=== PATIENT | female | born 1965 | race Caucasian/White ===

== ENCOUNTER 2016-04-07 13:33 | Outpatient (RCR) | payer BC ==
--- NOTE | 2016-05-05 07:48 | RADONC ---
RADIATION ONCOLOGY SIMULATION NOTE: DATE: 05/04/2016 Prabhu Roberts was taken to the linear accelerator today for clinical setup of her electron beam boost field. Setup was accomplished without difficulty or discomfort. Radiation treatment planning is underway and radiation treatments will begin subsequently. An immobilization device was created and will be used throughout the course of treatment. I was physically present throughout the course of simulation.
--- NOTE | 2016-05-05 08:35 | RADONC ---
RADIATION ONCOLOGY PROGRESS NOTE DATE: 05/04/2016 Ms. Pelletier is presently at a dose of 4215 cGy to her right breast and is tolerating treatments quite well at this point with no complaints related to her radiation therapy. She is having no breast or bone pain. The patient's skin is in good condition with no evidence of moist or dry desquamation. The remainder of physical exam remains unchanged. Ms. Pelletier is tolerating treatments quite well and radiation will continue as scheduled.
== END 2016-05-05 ==
LOC: M ONCR 13:33
PROVIDERS: ATTEND Radiology Radiation Oncology
DX: C50.811 Malignant neoplasm of overlapping sites of right female breast (principal)

== ENCOUNTER 2016-05-06 10:34 | Outpatient (RCR) | payer BC ==
--- NOTE | 2016-05-13 08:41 | RADONC ---
RADIATION ONCOLOGY DATE: 05/11/2016 PROGRESS NOTE Ms. Pelletier is presently at a dose of 5115 cGy to her right breast primary site and is tolerating treatments quite well at this point with no complaints related to her radiation therapy. REVIEW OF SYSTEMS: The patient's review of systems is largely noncontributory. Denies nausea, vomiting, fevers, chills, night sweats, diplopia, headaches, anxiety or depression, anorexia, weight loss, visual disturbances, chest pain, urinary or bowel difficulties, bone pain, or neurological problems. PHYSICAL EXAMINATION: The patient's skin is in good condition with no evidence of moist or dry desquamation. There is some erythema present. The remainder of her physical exam is within normal limits. Ms. Pelletier is tolerating her treatments quite well and radiation will continue as scheduled.
--- NOTE | 2016-05-14 14:20 | RADONC ---
RADIATION ONCOLOGY TREATMENT SUMMARY DATE: 05/12/2016 CHART NUMBER: [id number]. DIAGNOSIS: Right breast cancer. STAGE: IA, [id number]. ECOG PERFORMANCE STATUS: 0 TREATMENT SUMMARY: Ms. 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 We treated the patient to her right breast for a total dose of 4395 cGy delivered in 22 fractions over 33 elapsed days from 04/02/2016 through 05/05/2016. The patient's right breast was treated on a linear accelerator utilizing a 6 MV photon beam via 3D conformal technique with medial lateral tangential turner. Following completion of 4395 cGy to the entire right breast, the primary site was boosted for an additional 900 cGy delivered in five fractions of 180 cGy each from 05/06/2016 through 05/12/2016. The primary site boost was treated on a linear accelerator utilizing a 9 MeV electron beam prescribed to the 90% isodose line via an en face technique. Ms. Pelletier tolerated her treatments quite well and was able to complete therapy as prescribed without interruption. I have scheduled the patient to see me again in 1 month for further followup. She will also continue to be followed by her other physicians as well. cc: Bette Perez MD *Castro Hinson MD
== END 2016-06-02 ==
LOC: M ONCR 10:34
PROVIDERS: ATTEND Radiology Radiation Oncology
DX: C50.811 Malignant neoplasm of overlapping sites of right female breast (principal)

== ENCOUNTER → 2016-06-10 | Outpatient (CLI) | payer BC ==
--- NOTE | 2016-06-12 07:44 | RADONC ---
RADIATION ONCOLOGY FOLLOWUP NOTE DATE: 06/10/2016 CHART NUMBER: [id number]. DIAGNOSIS: Right breast cancer. STAGE: IA, [id number]. ECOG PERFORMANCE STATUS: 0 FOLLOWUP NOTE: Ms. Pelletier is a very pleasant 50-year-old white female with the diagnosis of a stage IA, [id number] poorly differentiated invasive ductal carcinoma of the right breast who is presenting to us today for routine followup visit 1 month post completion of external beam radiation therapy. The patient presents today reporting that she is doing quite well with no complaints at this time related to her radiation therapy or disease. She has no breast or bone pain. REVIEW OF SYSTEMS: The patient's review of systems is noncontributory. She denies nausea, vomiting, fevers, chills, night sweats, diplopia, headaches, anxiety or depression, anorexia, weight loss, visual disturbances, chest pain, urinary or bowel difficulties, bone pain, or neurological problems. PHYSICAL EXAMINATION: The patient is a well-developed, well-nourished white female in no acute distress. HEENT exam is normocephalic, atraumatic. Extraocular movements are intact. There is no palpable cervical, supraclavicular, infraclavicular, axillary, or inguinal lymphadenopathy present. Lungs are clear to auscultation and percussion. Heart has a regular rate and rhythm. Abdomen is benign with no hepatosplenomegaly, masses, or tenderness. Breast examination reveals no masses or discharge bilaterally. Skeletal examination reveals no tenderness to pressure or percussion of the bony skeleton. Extremities reveal no clubbing, cyanosis, or edema. Neurologic exam is grossly intact, as is the remainder of the physical examination. ASSESSMENT: The patient is clinically ANA at this time and will be seen by us again in 6 months for further followup. She will also continue to be followed by her other physicians as well.
== END ==
LOC: M ONCR 14:39
PROVIDERS: ATTEND Radiology Radiation Oncology
DX: C50.811 Malignant neoplasm of overlapping sites of right female breast (principal)

== ENCOUNTER → 2016-12-09 | Outpatient (CLI) | payer BC ==
[~2016-12-09] MED LIST: MULT1TAB10 PO; TAMO20TA4 PO
--- NOTE | 2016-12-09 09:47 | REP ---
Clinical: Preoperative assessment . Comparison: 10/14/2015 . Technique: PA and lateral. Findings: The mediastinum and cardiac silhouette are normal. Airway is patent and midline. Vzibsv-[id number] identified with tip in the SVC. The lung turner are clear and without acute consolidation, effusion, or pneumothorax. The skeletal structures are intact and normal. Impression: 1. No acute cardiopulmonary process. Signed by Ja Doyle MD 12/09/2016 09:39 A
== END ==
LOC: M SMT 09:17
PROVIDERS: ATTEND Thoracic Surgery (Cardiothoracic Vascular Surgery)
DX: Z01.818 Encounter for other preprocedural examination (principal)

== ENCOUNTER 2016-12-23 11:53 | Day surgery (SDC) | payer BC ==
[~2016-12-23] VITALS: Ht 157.5 cm; Wt 55.3 kg
[2016-12-23] MEDS ORDERED: LR 1,000 ML IV SCH (12:15)
[2016-12-23] MEDS ORDERED: MUPIROCIN 2% OINT 22 GM TUBE TOP ONE (12:15)
[2016-12-23 12:43] LABS: INR 1.05
[2016-12-23 12:47] LABS: ANION GAP 4 MEQ/L (8-16); BLOOD UREA NITROGEN 12 MG/DL (7-18); CARBON DIOXIDE LEVEL 32 MEQ/L (21-32); CHLORIDE LEVEL 107 MEQ/L (98-107); CREATININE FOR GFR 0.85 MG/DL (0.55-1.02); GLOMERULAR FILTRATION RATE > 60.0 (>51); GLUCOSE, FASTING 90 MG/DL (70-105); POTASSIUM SERUM 4.4 MEQ/L (3.5-5.1); SODIUM LEVEL 143 MEQ/L (136-145)
[2016-12-23 13:26] LABS: MEAN CORPUSCULAR HGB CONC 35.1 g/dl (32.0-36.5); RED CELL DISTRIBUTION WIDTH 11.7 % (11.5-14.5); WHITE BLOOD COUNT 4.2 K/mm3 (4.0-10.0)
[2016-12-23] MEDS ORDERED: BUPIVACAINE LIPOSOME/PF 1.3% 20 ML VIAL (13.3MG/ML)(EXPAREL) As Ordered ONE (13:39)
[2016-12-23] MEDS ORDERED: MIDAZOLAM INJ 2 MG/2 ML VIAL (J2250) As Ordered ONE (13:47)
[2016-12-23] MEDS ORDERED: PROPOFOL 200 MG/20 ML VIAL As Ordered ONE ×2 (13:47→14:39)
[2016-12-23] MEDS ORDERED: LIDOCAINE 2% INJ 100 MG/5 ML SDV (FOR ANES.) As Ordered ONE (13:47)
[2016-12-23] MEDS ORDERED: fentaNYL 100 MCG/2 ML INJECTION (J3010) As Ordered ONE (13:47)
[2016-12-23] MEDS ORDERED: ONDANSETRON 4MG/2ML VIAL (J2405) As Ordered ONE (14:39)
[2016-12-23 15:00] VITALS: BP 103/58
--- NOTE | 2016-12-23 15:17 | REP ---
Portable chest: Single view. History: Postop. Comparison study: December 09, 2016. Findings: The previously noted left subclavian Zisead-X-Slcd catheter has been removed since the prior study. There is no evidence of pneumothorax or hydrothorax. Cardiomediastinal silhouette is unremarkable. Lung turner are clear. Pleural angles are sharp. Impression: No active disease. Signed by Marcelino Stack MD 12/23/2016 03:08 P
--- NOTE | 2016-12-23 17:39 | RO ---
DATE OF PROCEDURE: 12/23/2016 PREPROCEDURE DIAGNOSIS: Retained Infusaport. Completion of chemotherapy. POSTPROCEDURE DIAGNOSIS: Retained Infusaport. Completion of chemotherapy. PROCEDURE: Removal of left subclavian Infusaport. SURGEON: Dr. Potter GASTROENTEROLOGIST: ANESTHESIA: DESCRIPTION OF PROCEDURE: Under satisfactory monitored anesthesia care (MAC) patient was prepped and draped in the usual sterile fashion. Incision was made over the original incision and carried down through the subcutaneous tissue to the Infusaport. Infusaport was seized with a Martha and delivered into the wound. The stem was identified and the entire catheter was removed in toto. The glistening capsule was removed by using electrocautery and after achieving adequate hemostasis the subcutaneous tissue was closed with a running #3-0 Vicryl suture. The skin was closed with running #4-0 Monocryl subcuticular suture. Patient tolerated the procedure well and left the operating room in satisfactory condition to the recovery room.
== END 2016-12-23 15:15 | disposition home or self-care (01) ==
LOC: M SDC 11:53
PROVIDERS: ATTEND Thoracic Surgery (Cardiothoracic Vascular Surgery)
DX: Z45.2 Encounter for adjustment and management of vascular access device (principal); Z92.21 Personal history of antineoplastic chemotherapy; Z92.3 Personal history of irradiation; Z85.3 Personal history of malignant neoplasm of breast; Z79.899 Other long term (current) drug therapy
CPT/HCPCS: 36415; 36590; 71010; 80048; 85027; 85610; 86850; 86900; 86901; J0690; J2250; J2405; J3010

== ENCOUNTER → 2016-12-30 | Outpatient (CLI) | payer BC ==
--- NOTE | 2016-12-31 10:01 | RADONC ---
RADIATION ONCOLOGY FOLLOWUP NOTE DATE: 12/30/2016 CHART NUMBER: [id number]. DIAGNOSIS: Right breast cancer. STAGE: IA, [id number]. ECOG PERFORMANCE STATUS: Zero. FOLLOWUP NOTE: Ms. Pelletier is a very pleasant, 51-year-old white female with the diagnosis of a stage IA, [id number], poorly differentiated invasive ductal carcinoma of the right breast who is presenting to me today for routine followup visit 7 months post completion of external beam radiation therapy. The patient presents today reporting that she is doing quite well with no complaints at this time related to her radiation therapy or disease. She has no breast or bone pain. REVIEW OF SYSTEMS: The patient's review of systems is noncontributory. Denies nausea, vomiting, fevers, chills, night sweats, diplopia, headaches, anxiety or depression, anorexia, weight loss, visual disturbances, chest pain, urinary or bowel difficulties, bone pain, or neurological problems. PHYSICAL EXAMINATION: The patient is a well-developed, well-nourished, 51-year-old white female in no acute distress. HEENT exam is normocephalic, atraumatic. Extraocular movements are intact. There is no palpable cervical, supraclavicular, infraclavicular, axillary, or inguinal lymphadenopathy present. Lungs are clear to auscultation and percussion. Heart has a regular rate and rhythm. Abdomen is benign with no hepatosplenomegaly, masses, or tenderness. Breast examination reveals no masses or discharge bilaterally. Skeletal examination reveals no tenderness to pressure or percussion of the bony skeleton. Extremities reveal no clubbing, cyanosis, or edema. Neurologic exam is grossly intact, as is the remainder of the physical examination. ASSESSMENT: The patient is clinically ANA at this time and will be seen by me again in 6 months for further followup. She will also continue to be followed by her other physicians as well. cc: MD Castro Lucio MD
== END ==
LOC: M ONCR 14:00
PROVIDERS: ATTEND Radiology Radiation Oncology
DX: C50.811 Malignant neoplasm of overlapping sites of right female breast (principal)

== ENCOUNTER → 2017-03-19 | Outpatient (REF) | payer BC ==
[2017-03-19 13:59] LABS: LUTEINIZING HORMONE 7.9 mIU/mL
[2017-03-19 14:00] LABS: ESTRADIOL < 19.0 PG/ML; FOLLICLE STIMULATING HORMONE 29.7 mIU/mL
== END ==
LOC: M LAB REF 13:11
PROVIDERS: ATTEND Internal Medicine Medical Oncology
DX: C50.419 Malignant neoplasm of upper-outer quadrant of unspecified female breast (principal)

== ENCOUNTER → 2017-04-01 | Outpatient (CLI) | payer BC ==
[~2017-04-01] MED LIST changes: +ISOVUE-370 76% 100ML VIAL (Q9967) As Ordered; -MULT1TAB10 PO; -TAMO20TA4 PO
== END ==
LOC: M RAD 10:34
DX: M54.9 Dorsalgia, unspecified (principal); Z85.3 Personal history of malignant neoplasm of breast
CPT/HCPCS: Q9967

== ENCOUNTER → 2017-04-08 | Outpatient (REF) | payer BC ==
[2017-04-09 10:16] LABS: CA 125 12.9 U/ML (<30.2)
== END ==
LOC: M LAB REF 13:38
DX: C50.319 Malignant neoplasm of lower-inner quadrant of unspecified female breast (principal)
CPT/HCPCS: 86304

== ENCOUNTER → 2017-07-28 | Outpatient (CLI) | payer BC | LOC: M ONCR 10:31 | DX: C50.811 Malignant neoplasm of overlapping sites of right female breast (principal) | CPT/HCPCS: G0463 ==